=== PATIENT | male | born 1960 | race Caucasian/White ===

== ENCOUNTER → 2021-05-09 | Outpatient (CLI) | payer OTHER ==
[~2021-05-09] MED LIST: TOPROL XL50 MG PO
[2021-05-09 15:24] LABS: HEMOGLOBIN 15.6 gm/dl (14.0-17.5); RED BLOOD COUNT 5.04 M/UL (4.20-5.50); WHITE BLOOD COUNT 5.8 K/UL (4.5-11.0)
[2021-05-09 15:45] LABS: BUN/CREATININE RATIO 15 (0-10)
== END ==
LOC: RAD 14:18
PROVIDERS: Nurse Practitioner
DX: R07.9 Chest pain, unspecified (principal); R05 Cough; R53.83 Other fatigue; E78.5 Hyperlipidemia, unspecified; Z91.018 Allergy to other foods
CPT/HCPCS: 36415; 71046; 80053; 80061; 82607; 84443; 85027; 85610; 93005

== ENCOUNTER → 2021-10-19 | Outpatient (CLI) | payer OTHER ==
[2021-10-19 15:58] LABS: HEMOGLOBIN 15.5 gm/dl (14.0-17.5); RED BLOOD COUNT 5.33 M/UL (4.20-5.50); WHITE BLOOD COUNT 6.1 K/UL (4.5-11.0)
[2021-10-19 16:15] LABS: BUN/CREATININE RATIO 13 (0-10)
[2021-10-20 08:15] LABS: THYROXINE (T4) 7.4 ug/dL (4.5-12.0); VITAMIN D, 25-HYDROXY 34.3 ng/mL (30.0-100.0)
== END ==
LOC: LAB 15:07
PROVIDERS: Nurse Practitioner Family
DX: E55.9 Vitamin D deficiency, unspecified (principal); E53.8 Deficiency of other specified B group vitamins; I10 Essential (primary) hypertension
CPT/HCPCS: 36415; 80053; 80061; 82607; 82746; 84436; 84443; 84480; 85025